=== PATIENT | female | born 2000 | race Caucasian/White ===

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

== ENCOUNTER 2021-01-25 17:27 | Emergency (ER) | payer MEDICAID ==
[~2021-01-25] VITALS: Ht 149.8 cm; Wt 49.9 kg
[~2021-01-25 17:27] MED LIST changes: -DCS100C PO; +DOCU-239 PO
[2021-01-25 17:41] VITALS: BP 129/79
[2021-01-25 17:45] LABS: CLARITY,URINE CLEAR; COLOR,URINE YELLOW
[2021-01-25 17:46] LABS: BACTERIA,URINE TRACE /HPF; BILIRUBIN,URINE NEGATIVE (NEGATIVE); GLUCOSE, URINE (UA) NEGATIVE (NEGATIVE); KETONES,URINE NEGATIVE (NEGATIVE); LEUKOCYTE ESTERASE ,URINE TRACE (NEGATIVE); NITRITE,URINE NEGATIVE (NEGATIVE); PROTEIN,URINE NEGATIVE (NEGATIVE); URINE OTHER SPERM PRESENT /HPF; WBC,URINE 0-2 /HPF
--- NOTE | 2021-01-25 18:09 | ED GU-Female ---
General Chief Complaint: OB > 20 WEEKS Stated Complaint: POSS CONTRACTIONS 24 WKS PREG Nursing Triage Note: Patient reports she is 24 weeks , MAYTE 05/15/21. She states she is having lower abdominal pressure and vaginal pressure. She states she had premature labor with her previous and is concerned she may be going into labor now. She states she sees Dr. Camacho and plans to deliver in [place]. Source: patient, old records History of Present Illness Date Seen by Provider: Jan 25, 2021 Time Seen by Provider: 17:30 Initial Comments 20-year-old G2, P1 patient that is 24 weeks and 2 days by her last menstrual period. She presents with cramping pain and pressure in her pelvis since yesterday. She stated that this started before having sex but has been worse since having sex. She denies any pain or burning with urination. She has had no vaginal bleeding, discharge, gush of fluid. She has pressure and sensation of contractions and needing to push similar to when she had gone into labor at 36 weeks in May. She states that she is scheduled to fly to [place] in the morning to go and be evaluated in regards to history of some cancer that she had when she was born. She wanted to be evaluated and checked before any travel to make sure she was not going into labor. She denies having headache, blurred vision, chest pain, nausea or vomiting. She has had no fever or chills. Timing/Duration: yesterday Severity/Quality: cramping (And pressure) Location: suprapubic, vaginal Radiation: suprapubic, vaginal Prior Genitourinary Problems: similar symptoms (With labor in May) Sexual Leoma History: less than 2 months ago, single partner Associated Symptoms: No diaphoresis, No dysuria, No fever/chills, No loss of bladder control, No lower back pain, No lumps, No mass, No nausea/vomiting, No nocturia, No polyuria, No swelling, No syncope, No urinary frequency Allergies and Home Medications Allergies Coded Allergies: No Known Drug Allergies (Unverified , 10/11/19) Patient Home Medication List Home Medication List Reviewed: Yes Docusate Sodium (Dok) 100 Mg Capsule, 100 MG PO BID PRN for CONSTIPATION-1ST LINE Prescribed by: GONZALO DONALD on 06/10/20 0818 Ferrous Sulfate (Iron) 325 Mg Tablet, 325 MG PO DAILY, (Reported) Entered as Reported by: JUANA FOSTER on 06/08/20 06 Ibuprofen (Ibuprofen) 600 Mg Tablet, 600 MG PO Q6H PRN for PAIN-MILD Prescribed by: GONZALO DONALD on 06/10/20 0818 Vit No.124/Iron/FA ( Vitamin Tablet) 1 Each Tablet, 1 EACH PO DAILY, (Reported) Entered as Reported by: JUANA FOSTER on 06/08/20631 Review of Systems Review of Systems Constitutional: No chills, No fever EENTM: no symptoms reported Respiratory: no symptoms reported Cardiovascular: no symptoms reported Gastrointestinal: no symptoms reported Genitourinary: see HPI : Yes Expected Date of Delivery: May 15, 2021 Musculoskeletal: no symptoms reported Skin: no symptoms reported Psychiatric/Neurological: Anxiety Past Zzsriam-Xnpeqe-Uiozbu Hx Patient Social History Tobacco Use?: No Substance use?: No Alcohol Use?: No Pt feels they are or have been: No Seasonal Allergies Seasonal Allergies: No Past Medical History Surgeries: Yes (Cancer in muscle of back removed?) Respiratory: No Cardiac: No Neurological: No Expected Date of Delivery: May 15, 2021 Sexually Transmitted Disease: Yes Genitourinary: No Gastrointestinal: No Musculoskeletal: No Endocrine: No HEENT: No Cancer: No Psychosocial: No Integumentary: No Blood Disorders: No Adverse Reaction/Blood Tranf: No Physical Exam Vital Signs Vital Signs - First Documented 01/25/21 17:41 Temp 36.9 Pulse 89 Resp 16 B/P (MAP) 129/79 (96) Pulse Ox 100 O2 Delivery Room Air Capillary Refill : Less Than 3 Seconds Height, Weight, BMI Height: '" Weight: lbs. oz. kg; 22.00 BMI Method: General Appearance: WD/WN, no apparent distress Cardiovascular: normal peripheral pulses, regular rate, rhythm Respiratory: chest non-tender, lungs clear, normal breath sounds Gastrointestinal: normal bowel sounds, soft, no pulsatile mass, other (Gravid uterus with heart tones in the 140s to 150s.) Genital/Rectal: normal vaginal exam (On vaginal exam the cervix felt to be closed and no bleeding or discharge noted.) Neurologic/Psychiatric: alert, oriented x 3 Skin: normal color, warm/dry Progress/Results/Core Measures Suspected Sepsis SIRS Temperature: Pulse: 89 Respiratory Rate: 16 Blood Pressure 129 /79 Mean: 96 Results/Orders Lab Results Laboratory Tests Test 01/25/21 17:33 Range/Units Urine Color YELLOW Urine Clarity CLEAR Urine pH 6.0 5-9 Urine Specific [place] 1.025 H 1.016-1.022 Urine Protein NEGATIVE NEGATIVE Urine Glucose (UA) NEGATIVE NEGATIVE Urine Ketones NEGATIVE NEGATIVE Urine Nitrite NEGATIVE NEGATIVE Urine Bilirubin NEGATIVE NEGATIVE Urine Urobilinogen 0.2 < = 1.0 MG/DL Urine Leukocyte Esterase TRACE H NEGATIVE Urine RBC (Auto) NEGATIVE NEGATIVE Urine RBC NONE /HPF Urine WBC 0-2 /HPF Urine Squamous Epithelial Cells 2-5 /HPF Urine Crystals NONE /LPF Urine Bacteria TRACE /HPF Urine Casts NONE /LPF Urine Mucus MODERATE H /LPF Urine Other SPERM PRESENT /HPF Urine Culture Indicated YES My Orders Orders - SARATH MIX MD Ua Culture If Indicated (01/25/21 17:40) Heart Tones (01/25/21 17:43) Urine Culture (01/25/21 17:33) Vital Signs/I&O 01/25/21 17:41 Temp 36.9 Pulse 89 Resp 16 B/P (MAP) 129/79 (96) Pulse Ox 100 O2 Delivery Room Air Capillary Refill : Less Than 3 Seconds Blood Pressure Mean: 96 Progress Note : Progress Note Urinalysis showed elevated specific gravity of 1.025 as well as trace leukocyte esterase. A culture was reflexed. Discussed with Dr. Andre who is on-call for Dr. Camacho with OB. She recommended having the patient get IV fluids, vaginal exam and to check with labor and delivery in [place]. When reviewing this with the patient she stated that she did not want to have IV fluids or get transferred by ambulance but she would go down to [place] by private vehicle and go to labor and delivery. She would be willing to get IV fluids there and she was encouraged to drink more fluids in route to the hospital Departure Impression Primary Impression: Feeling pelvic pressure during in second trimester, antepartum Additional Impression: Dehydration during Disposition: 30 STILL A PATIENT Condition: Stable Departure-Patient Inst. Decision time for Depature: 18:07 Referrals: FRITZ CAMACHO MD (PCP/Family) Primary Care Physician Patient Instructions: Dehydration, Adult ED, Stomach Pain Later in Add. Discharge Instructions: Stay well hydrated and drink water while you are on your way to [place] [address] [place] Go straight to the [facility] in [place] and go to the Emergency Department and tell them you need to be checked in to the Labor and Delivery area so that they can check for contractions and premature labor, per Dr. Villegas. All discharge instructions reviewed with patient and/or family. Voiced understanding. SARATH MIX MD Jan 25, 2021 18:09
== END 2021-01-25 18:15 | disposition still patient (30) ==
LOC: EDUNIT# 17:27 → ER FS 17:31
DX: O26.892 Other specified pregnancy related conditions, second trimester (principal); E86.0 Dehydration; Z3A.24 24 weeks gestation of pregnancy
CPT/HCPCS: 81000; 87088

== ENCOUNTER 2021-01-25 20:59 | Outpatient (CLI) | payer MEDICAID ==
[~2021-01-25] VITALS: Ht 149.9 cm; Wt 51.8 kg
[2021-01-25 21:18] VITALS: BP 120/64
[2021-01-25 21:22] VITALS: BP 120/64
[2021-01-25] MEDS ORDERED: LACTATED RINGERS 1,000 ML IV ONE (22:15)
--- NOTE | 2021-01-27 08:15 | Physician Query-Final Dx ---
Clinic Account Progress/Dx Physician Query: Please give diagnosis Please include # weeks gestation Date of Service Jan 25, 2021 at 20:59 GLENYS GONZALES Jan 27, 2021 08:15
== END 2021-01-25 22:43 | disposition home or self-care (01) ==
LOC: WSo 20:59 → LDRP 21:00 → WSo 22:43
PROVIDERS: ATTEND Family Medicine
DX: O62.9 Abnormality of forces of labor, unspecified (principal); Z3A.24 24 weeks gestation of pregnancy

== ENCOUNTER 2021-02-14 14:10 | Outpatient (CLI) | payer MEDICAID ==
[2021-02-14 13:40] VITALS: BP 109/72
[2021-02-14] MEDS ORDERED: IRON SUCROSE 200 MG/10 ML (VENOFER) VIAL IV ONE (14:45)
== END 2021-02-14 15:10 | disposition home or self-care (01) ==
LOC: SDC 14:10
PROVIDERS: ATTEND Family Medicine
DX: O99.019 Anemia complicating pregnancy, unspecified trimester (principal); Z3A.00 Weeks of gestation of pregnancy not specified

== ENCOUNTER 2021-02-21 13:33 | Outpatient (CLI) | payer MEDICAID ==
[~2021-02-21] VITALS: Ht 149.8 cm; Wt 53.0 kg
[2021-02-21 14:30] LABS: BILIRUBIN,URINE NEGATIVE (NEGATIVE); CLARITY,URINE CLEAR; COLOR,URINE YELLOW; GLUCOSE, URINE (UA) NEGATIVE (NEGATIVE); KETONES,URINE NEGATIVE (NEGATIVE); LEUKOCYTE ESTERASE ,URINE NEGATIVE (NEGATIVE); NITRITE,URINE NEGATIVE (NEGATIVE); PH,URINE 6.5 (5-9); PROTEIN,URINE NEGATIVE (NEGATIVE)
[2021-02-21 14:43] LABS: BACTERIA,URINE TRACE /HPF; SQUAMOUS EPITHELIAL CELL,UR 0-2 /HPF; WBC,URINE 0-2 /HPF
[2021-02-21 15:50] VITALS: BP 131/59
[2021-02-21 16:05] VITALS: BP 131/59
--- NOTE | 2021-02-24 08:16 | Physician Query-Final Dx ---
Clinic Account Progress/Dx Physician Query: Please give diagnosis Please include # weeks gestation Date of Service Feb 21, 2021 at 13:33 JANET,AprFeb 24, 2021 08:16
== END 2021-02-21 16:25 | disposition home or self-care (01) ==
LOC: WSo 13:33 → LDRP 13:33 → WSo 16:25
PROVIDERS: ATTEND Family Medicine
DX: O26.892 Other specified pregnancy related conditions, second trimester (principal); Z3A.00 Weeks of gestation of pregnancy not specified
CPT/HCPCS: 81000; 87088

== ENCOUNTER 2021-02-28 13:02 | Outpatient (CLI) | payer MEDICAID ==
[~2021-02-28] VITALS: Ht 149.9 cm; Wt 57.2 kg
[2021-02-28 13:05] VITALS: BP 105/61
[2021-02-28] MEDS ORDERED: IRON SUCROSE 200 MG/10 ML (VENOFER) VIAL IV ONE ×2 (13:49→14:00)
== END 2021-02-28 14:40 | disposition home or self-care (01) ==
LOC: SDC 13:02
PROVIDERS: ATTEND Family Medicine
DX: O99.013 Anemia complicating pregnancy, third trimester (principal); D64.9 Anemia, unspecified; Z3A.00 Weeks of gestation of pregnancy not specified
CPT/HCPCS: 96365

== ENCOUNTER 2021-03-24 20:57 | Outpatient (CLI) | payer MEDICAID ==
[~2021-03-24] VITALS: Ht 149.9 cm; Wt 55.4 kg
[2021-03-24 21:32] VITALS: BP 118/70
[2021-03-24 21:35] LABS: BILIRUBIN,URINE NEGATIVE (NEGATIVE); CLARITY,URINE CLEAR; COLOR,URINE YELLOW; GLUCOSE, URINE (UA) NEGATIVE (NEGATIVE); KETONES,URINE NEGATIVE (NEGATIVE); LEUKOCYTE ESTERASE ,URINE NEGATIVE (NEGATIVE); NITRITE,URINE NEGATIVE (NEGATIVE); PH,URINE 7.5 (5-9); PROTEIN,URINE NEGATIVE (NEGATIVE)
[2021-03-24 21:56] LABS: BACTERIA,URINE TRACE /HPF; WBC,URINE 0-2 /HPF
[2021-03-24 22:00] VITALS: BP 118/70
[2021-03-24] MEDS ORDERED: BETAMETHASONE ACE/NA PHOS 6 MG/ML (CELESTONE SOLUSPAN) IM SCH (22:15)
[2021-03-24] MEDS ORDERED: BETAMETHASONE ACE/NA PHOS 6 MG/ML (CELESTONE SOLUSPAN) ONE (22:19)
[2021-03-24] MEDS: LACTATED RINGERS 1,000 ML IV SCH (22:25)
[2021-03-25] MEDS: LACTATED RINGERS 1,000 ML IV SCH ×2 (04:43→18:30)
[2021-03-25 07:22] VITALS: BP 118/70
[2021-03-25] MEDS ORDERED: ACETAMINOPHEN 500 MG TAB (TYLENOL) PO PRN (08:30)
[2021-03-25 08:40] VITALS: BP 101/57
--- NOTE | 2021-03-25 08:46 | Diagnostic Imaging Report ---
INDICATION: Fluid loss during . TECHNIQUE: Multiple real-time grayscale images were obtained over the gravid uterus. COMPARISON: None FINDINGS: Cervix measures approximately 4.2 cm and closed. Fetus is in cephalic presentation. The placenta is normal in appearance. The amount of amniotic fluid is normal with an CHATO of 11.78 cm. anatomy survey was not performed due to advanced gestational age. Biometrical measurements are as follows: Biparietal 8.87 cm, age 36 weeks 0 days. Head circumference 31.14 cm, age 34 weeks 6 days. Abdominal circumference 30.52 cm, age 34 weeks 4 days. Femur length 6.46 cm, age 33 weeks 3 days. Sonographic estimate age: 34 weeks 5 days. Sonographic estimated date of delivery: 05/01/2021. Estimated Weight: 2405 gm (+/- 351 gm). LMP percentile: 87%. heart rate: 119 beats per minute. number: 1 of 1. IMPRESSION: 1. Single live intrauterine in cephalic presentation. 2. CHATO is normal at 11.78 cm. Dictated by: Dictated on workstation # [id number]
[2021-03-25 09:54] LABS: HEMATOCRIT 29 % (35-52); HEMOGLOBIN 9.2 g/dL (11.5-16.0); MEAN CORPUSCULAR HEMOGLOBIN 27 pg (25-34); MEAN CORPUSCULAR HGB CONC 31 g/dL (32-36); MEAN CORPUSCULAR VOLUME 86 fL (80-99); MEAN PLATELET VOLUME 11.2 fL (9.0-12.2); PLATELET COUNT 219 10^3/uL (130-400); WHITE BLOOD COUNT 6.8 10^3/uL (4.3-11.0)
[2021-03-25] MEDS ORDERED: IRON SUCROSE 200 MG/10 ML (VENOFER) VIAL IV ONE (10:45)
--- NOTE | 2021-03-25 11:36 | Diagnostic Imaging Report ---
INDICATION: Intermittent bradycardia. FINDINGS: Examination shows a normal biophysical profile with 2 given for breathing movement, movement, posture and tone and quantitative amniotic fluid volume for score of 8/8. heart rate was seen at 111 BPM. Presentation was cephalic. IMPRESSION: Normal biophysical profile with score of 8/8. Dictated by: Dictated on workstation # [id number]
--- NOTE | 2021-03-25 13:23 | Diagnostic Imaging Report ---
INDICATION: Followup renal dilatation. TECHNIQUE: Multiple Real-time grayscale images were obtained over the gravid uterus. COMPARISON: None. FINDINGS: Both kidneys do show some dilatation of the renal collecting systems. The right renal pelvis is dilated up to 7 mm. The left renal pelvis is dilated up to 8 mm. The bladder is unremarkable. IMPRESSION: Bilateral renal pelvic dilatation. Dictated by: Dictated on workstation # [id number]
[2021-03-25 15:27] VITALS: BP 100/59
--- NOTE | 2021-03-25 16:56 | Short Stay Summary ---
History of Present Illness History of Present Illness Reason for visit/HPI at 32w4d presented to Labor and Delivery on 03/24 in the evening due to contractions, possible mucous plug loss. She was found to have very rare contractions, but given her history of delivery, she was given betamethasone around 10 pm on 03/24 and ultrasound was obtained in the am 03/25 which showed cervical length of 4.2 cm. However, during the night she had periods of low heart tone baseline, and occasional variable decelerations. Due to this, BPP was done in the morning on 03/25 which was 8/8. She also was noted to have had mild renal pelviectasis on anatomy US and so this was rechecked and confirmed persistent mild bilateral renal pelvis enlargement of 7 mm and 8 mm for right and left respectively. CHATO normal at 11. She did also receive a dose of venofer, which she had been planning to get outpatient but had not received a call about per her and mother's report. CBC unremarkable except for hemoglobin 9.2. UA was normal. She continued to have some back pain, and periods of intermittent luke, and throughout the day continued to have occasional concerning decelerations, the most significant of which was around 3 pm and had deceleration to 60s for 3 minutes, after which baseline FHTs were 120s with moderate variability and accels present since that time. Given her history of labor and intermittent contractions in combination with non- reassuring heart tones, discussed with Dr. Hough at [facility] who accepted patient in transfer. Intake labs from clinic show blood type A neg, antibody neg, RI. HIV/HepB/RPR NR. GC/chlamydia neg. 1 hour glucola 109. Per early notes, she has history of substance use, intake urine was positive for THC only. Date of Admission 03/24/2021 Date of Discharge 03/25/2021 Time Seen by Provider: 09:00 Attending Physician Gonzalo Donald MD Admitting Physician Fritz Camacho MD Consult Allergies and Home Medications Allergies Coded Allergies: No Known Drug Allergies (Unverified , 10/11/19) Patient Home Medication List Home Medication List Reviewed: Yes Ferrous Sulfate (Ferosul) 325 Mg Tablet, 325 MG PO BID, (Reported) Entered as Reported by: GONZALO DONALD on 03/25/21 1701 Last Action: Reviewed Vit No.124/Iron/FA ( Vitamin Tablet) 1 Each Tablet, 1 EACH PO DAILY, (Reported) Entered as Reported by: JUANA FOSTER on 06/08/20 0632 Last Action: Reviewed Past Ctlkggx-Hpqjtw-Tbvxne Hx Patient Social History 2nd Hand Smoke Exposure: No Recent Hopitalizations: No Seasonal Allergies Seasonal Allergies: No Surgeries Yes (Cancer in muscle of back removed?) Respiratory No Cardiovascular No Neurological No Reproductive System Expected Date of Delivery: May 15, 2020 Hx : 2 Hx Para: 1 Hx Total # of Abortions (Spona: 0 Sexually Transmitted Disease: Yes Genitourinary No Gastrointestinal No Musculoskeletal No Endocrine History of Endocrine Disorders: No HEENT History of HEENT Disorders: No Cancer No Psychosocial History of Psychiatric Problem: No Integumentary History of Skin or Integumenta: No Blood Transfusions History of Blood Disorders: No Adverse Reaction to a Blood Tr: No Review of Systems Constitutional: other (see HPI) Physical Exam Vital Signs Vital Signs - First Documented 03/24/21 03/24/21 21:32 22:00 Temp 37.0 Pulse 93 Resp 18 B/P (MAP) 118/70 (86) Pulse Ox 98 O2 Delivery Room Air Capillary Refill : Less Than 3 Seconds Height, Weight, BMI Height: '" Weight: lbs. oz. kg; 24.65 BMI Method: General Appearance: No Apparent Distress, WD/WN Cardiovascular: No Edema Gastrointestinal: Other (gravid, nontender) Neurologic/Psychiatric: Alert, Normal Mood/Affect Skin: Normal Color, Warm/Dry Short Stay Diagnosis Discharge Diagnosis-Short Stay Admission Diagnosis: Third trimester 32 weeks gestation History of delivery at 35 weeks contractions with reassuring cervical length Final Discharge Diagnosis: Third trimester 32 weeks gestation contractions Nonreassuring heart tones Conclusion Labs Laboratory Tests 03/24/21 21:15: Urine Color YELLOW, Urine Clarity CLEAR, Urine pH 7.5, Urine Specific [place] 1.015L, Urine Protein NEGATIVE, Urine Glucose (UA) NEGATIVE, Urine Ketones NEGATIVE, Urine Nitrite NEGATIVE, Urine Bilirubin NEGATIVE, Urine Urobilinogen 0.2, Urine Leukocyte Esterase NEGATIVE, Urine RBC (Auto) NEGATIVE, Urine RBC NONE, Urine WBC 0-2, Urine Squamous Epithelial Cells 2-5, Urine Crystals NONE, Urine Bacteria TRACE, Urine Casts NONE, Urine Mucus NEGATIVE, Urine Culture Indicated NO 03/25/21 09:44: White Blood Count 6.8, Red Blood Count 3.41L, Hemoglobin 9.2L, Hematocrit 29L, Mean Corpuscular Volume 86, Mean Corpuscular Hemoglobin 27, Mean Corpuscular Hemoglobin Concent 31L, Red Cell Distribution Width 15.9H, Platelet Count 219, Mean Platelet Volume 11.2 Conclusion/Plan Transferred to [facility] for further monitoring/availability of NICU. Copy Copies To 1: FRITZ CAMACHO MD, BETHANY N MD Mar 25, 2021 16:56
[2021-03-25] MEDS ORDERED: FERR325T24 PO (17:01)
[2021-03-25 17:41] LABS: AMPHETAMINE SCREEN, URINE NEGATIVE (NEGATIVE); BARBITURATE SCREEN URINE NEGATIVE (NEGATIVE); BENZODIAZEPINES SCREEN URINE NEGATIVE (NEGATIVE); CANNABINOID SCREEN, URINE NEGATIVE (NEGATIVE); COCAINE SCREEN URINE NEGATIVE (NEGATIVE); METHADONE STAT NEGATIVE (NEGATIVE); METHAMPHETAMINE SCREEN URINE S NEGATIVE (NEGATIVE); OPIATE SCREEN URINE NEGATIVE (NEGATIVE); OXYCODONE STAT NEGATIVE (NEGATIVE); PROPOXYPHENE STAT NEGATIVE (NEGATIVE); TRICYCLIC ANTIDEPRESSANTS SCRE NEGATIVE (NEGATIVE)
== END 2021-03-25 18:30 | disposition other institution (70) ==
LOC: WSo 20:57 → LDRP 20:57 → WSo 03-25 18:30
PROVIDERS: ATTEND Family Medicine
DX: O41.93X0 Disorder of amniotic fluid and membranes, unspecified, third trimester, not applicable or unspecified (principal); Z3A.34 34 weeks gestation of pregnancy
CPT/HCPCS: 36415; 76805; 76816; 76819; 80306; 81000; 85027; G0378

== ENCOUNTER 2021-03-29 00:54 | Outpatient (CLI) | payer MEDICAID ==
[~2021-03-29 00:54] MED LIST changes: +FERR325T24 PO
[2021-03-29 01:36] LABS: BILIRUBIN,URINE NEGATIVE (NEGATIVE); CLARITY,URINE CLEAR; COLOR,URINE YELLOW; GLUCOSE, URINE (UA) NEGATIVE (NEGATIVE); KETONES,URINE NEGATIVE (NEGATIVE); LEUKOCYTE ESTERASE ,URINE TRACE (NEGATIVE); NITRITE,URINE NEGATIVE (NEGATIVE); PROTEIN,URINE NEGATIVE (NEGATIVE)
[2021-03-29 01:45] LABS: BACTERIA,URINE TRACE /HPF; RBC,URINE 0-2 /HPF
[2021-03-29 01:46] LABS: SQUAMOUS EPITHELIAL CELL,UR 0-2 /HPF
[2021-03-29 01:57] VITALS: BP 106/60
[2021-03-29 02:17] VITALS: BP 106/60
[2021-03-29 06:20] VITALS: BP 91/52
[2021-03-29 09:00] VITALS: BP 97/53
--- NOTE | 2021-03-29 10:48 | Short Stay Summary ---
Discharge Summary Hospital Course Final Diagnosis: COVID19, no respiratory distress, 3rd trim preg Hospital Course Date of Admission: Admission Diagnosis : COVID19 infection Shortness of breath Family Physician/Provider: Fritz Cruz MD Date of Discharge: 03/29/21 Discharge Diagnosis: COVID19, no respiratory distress or hypoxia 33 weeks gestation Hospital Course: 20 yo at 33w1d presented to ER after telling nurse via telephone that she was having chest pressure and shortness of breath with known COVID19 positive test. She was seen on L&D on Wednesday, 03/24-03/25 for cramping and possible mucous plug loss, at that time no covid symptoms were noted. She was monitored overnight and did have some fairly severe decelerations, althought she had a normal (11/17 BPP on 03/25 am), she was transferred to [place], where she reports she was monitored and then was going to be discharged, but she didn't have a ride, and then had recurrent decels again overnight, but since she had a ride, she left AMA in the morning. They apparently tested her for COVID at [facility] due to report of SO being positive. When outpatient clinic nurse called her to set up a follow up BPP this coming Wednesday and monoclonal antibody infusion, she reported the above symptoms and was directed to the ER. She was found to have no hypoxia or respiratory distress, and was sent to L&D for further monitoring. Overnight, status has been reassuring and so this morning, I called pharmacy to ensure she had monoclonal antibody infusion set up, but they did not have her paperwork, so I re-ordered and [facility] registration is to call patient on Wednesday to schedule her. I told Ori if she was not called first thing Wednesday to be sure and call to let us know. Labs and Pending Lab Test: Laboratory Tests 03/29/21 01:15: Urine Color YELLOW, Urine Clarity CLEAR, Urine pH 6.0, Urine Specific [place] >=1.030, Urine Protein NEGATIVE, Urine Glucose (UA) NEGATIVE, Urine Ketones NEGATIVE, Urine Nitrite NEGATIVE, Urine Bilirubin NEGATIVE, Urine Urobilinogen 0.2, Urine Leukocyte Esterase TRACEH, Urine RBC (Auto) NEGATIVE, Urine RBC 0-2, Urine WBC 5-10H, Urine Squamous Epithelial Cells 0-2, Urine Crystals NONE, Urine Bacteria TRACE, Urine Casts NONE, Urine Mucus NEGATIVE, Urine Culture Indicated YES Home Meds Active Reported Ferosul (Ferrous Sulfate) 325 Mg Tablet 325 Mg PO BID Vitamin Tablet ( Vit No.124/Iron/FA) 1 Each Tablet 1 Each PO DAILY Assessment/Pt Instructions Follow up as scheduled for Biophysical profile at [facility] on Wednesday. Call the clinic and hospital if you do not receive a call to schedule COVID monoclonal antibody infusion on Wednesday. Discharge Instructions Discharge Diet: No Restrictions Activity as Tolerated: Yes Discharge Physical Examination General Appearance: Alert, No Acute Distress Respiratory: Clear to Auscultation, Normal Air Movement Cardiovascular: Regular Rate, No Murmurs Extremities: No Edema Neuro: Normal Speech Psych/Mental Status: Mood NL Allergies: Coded Allergies: No Known Drug Allergies (Unverified , 10/11/19) Copy Copies To 1: FRITZ CRUZ MD Discharge Summary Date of Admission Date of Discharge Discharge Date: Mar 29, 2021 GONZALO DONALD MD Mar 29, 2021 10:48
== END 2021-03-29 11:10 | disposition home or self-care (01) ==
LOC: WSo 00:54 → LDRP 00:55 → WSo 11:10
PROVIDERS: ATTEND Family Medicine
DX: O26.853 Spotting complicating pregnancy, third trimester (principal); O26.893 Other specified pregnancy related conditions, third trimester; R10.9 Unspecified abdominal pain; Z3A.34 34 weeks gestation of pregnancy
CPT/HCPCS: 81000; 87088

== ENCOUNTER 2021-04-10 08:38 | Outpatient (CLI) | payer MEDICAID ==
[2021-04-10 08:45] VITALS: BP 108/74
[2021-04-10 09:00] VITALS: BP 108/74
[2021-04-10 09:10] LABS: BILIRUBIN,URINE NEGATIVE (NEGATIVE); CLARITY,URINE SL CLOUDY; COLOR,URINE YELLOW; GLUCOSE, URINE (UA) NEGATIVE (NEGATIVE); KETONES,URINE NEGATIVE (NEGATIVE); LEUKOCYTE ESTERASE ,URINE NEGATIVE (NEGATIVE); NITRITE,URINE NEGATIVE (NEGATIVE); PROTEIN,URINE NEGATIVE (NEGATIVE)
[2021-04-10 09:31] LABS: BACTERIA,URINE FEW /HPF; WBC,URINE 0-2 /HPF
[2021-04-10] MEDS ORDERED: ONDANSETRON 4 MG (ZOFRAN) ORAL DISSOLVE TAB PO ONE (10:00)
--- NOTE | 2021-04-11 08:32 | Physician Query-Final Dx ---
JANET,04/11/21 0832: Clinic Account Progress/Dx Physician Query: Please give diagnosis Please include # weeks gestation Date of Service Apr 10, 2021 at 08:38 CARLIN CHRISTIANSON MD 04/12/21 0813: Clinic Account Progress/Dx DIAGNOSIS: Diagnosis 1. IUP at term 39 weeks, non labor 2. Abdominal pain with uterine irritability JANET,AprApr 11, 2021 08:32 CARLIN CHRISTIANSON MD Apr 12, 2021 08:13
== END 2021-04-10 11:35 | disposition home or self-care (01) ==
LOC: WSo 08:38 → LDRP 08:39 → WSo 11:35
PROVIDERS: ATTEND Family Medicine
DX: O26.893 Other specified pregnancy related conditions, third trimester (principal); R10.9 Unspecified abdominal pain; Z3A.39 39 weeks gestation of pregnancy
CPT/HCPCS: 81000; 87088; 99213

== ENCOUNTER 2021-04-10 18:11 | Inpatient (IN) | payer MEDICAID ==
[~2021-04-10] VITALS: Ht 149.9 cm; Wt 55.7 kg
[2021-04-10] VITALS (12 sets, daily range): BP systolic 107–136; BP diastolic 67–94
[2021-04-10] MEDS ORDERED: D5 LR IV SOLUTION 1,000 ML IV SCH (19:00)
[2021-04-10] MEDS ORDERED: D5 LR IV SOLUTION 1,000 ML IV ONE (19:03)
[2021-04-10] MEDS ORDERED: AMPICILLIN 2,000 MG/14.8 ML (IV USE) ONE (19:11)
[2021-04-10] MEDS ORDERED: NS (IVPB) 50 ML ONE (19:12)
[2021-04-10] MEDS ORDERED: NALOXONE 0.4 MG/ML 1 ML (NARCAN) VIAL ONE (19:23)
[2021-04-10] MEDS ORDERED: MEPIVACAINE (CARBOCAINE) 2% 50 ML VIAL ONE (19:24)
[2021-04-10] MEDS ORDERED: OXYTOCIN PRE-MIX DRIP 500 ML IV ONE ×2 (19:27→20:52)
[2021-04-10] MEDS ORDERED: AMPICILLIN FOR IV USE 2,000 MG in WATER (STERILE) FOR INJECTION 14.8 ML IV ONE (19:30)
[2021-04-10] MEDS ORDERED: NS IV 500 ML 500 ML IV SCH (19:30)
[2021-04-10 19:36] LABS: BASOPHILS % (AUTO) 0 % (0-10); EOSINOPHILS % (AUTO) 0 % (0-10); HEMATOCRIT 35 % (35-52); HEMOGLOBIN 11.1 g/dL (11.5-16.0); LYMPHOCYTES # (AUTO) 0.9 10^3/uL (1.0-4.0); LYMPHOCYTES % (AUTO) 13 % (12-44); MEAN CORPUSCULAR HEMOGLOBIN 27 pg (25-34); MEAN CORPUSCULAR HGB CONC 32 g/dL (32-36); MEAN CORPUSCULAR VOLUME 86 fL (80-99); MONOCYTES # (AUTO) 0.5 10^3/uL (0.0-1.0); MONOCYTES % (AUTO) 7 % (0-12); NEUTROPHILS # (AUTO) 5.5 10^3/uL (1.8-7.8); NEUTROPHILS % (AUTO) 79 % (42-75); PLATELET COUNT 165 10^3/uL (130-400); WHITE BLOOD COUNT 6.9 10^3/uL (4.3-11.0)
--- NOTE | 2021-04-10 20:01 | History & Physical-OB ---
OB - Chief Complaint & HPI Date/Time Date of Admission: Date of Admission: Date seen by a Provider: Apr 10, 2021 Time Seen by a Provider: 19:00 Chief Complaint/History OB-Reason for Admission/Chief: Onset of Labor Hx : 2 Hx Para: 1 Expected Date of Delivery: May 15, 2021 Gestational Age in Weeks: 35 Gestational Age in Days: 0 Admission Nurse Assessment Rev: Yes History of Labs No GBS as of admission. She will be given Amp protochol ANA. Allergies and Home Medications Allergies Coded Allergies: No Known Drug Allergies (Unverified , 10/11/19) Patient Home Medication List Home Medication List Reviewed: Yes Ferrous Sulfate (Ferosul) 325 Mg Tablet, 325 MG PO BID, (Reported) Entered as Reported by: GONZALO DONALD on 03/25/21 1701 Vit No.124/Iron/FA ( Vitamin Tablet) 1 Each Tablet, 1 EACH PO DAILY, (Reported) Entered as Reported by: JUANA FOSTER on 06/08/20 0632 OB - History Hx of Present Care: Yes Ultrasounds: Normal mid trimester US Obstetrical Complications: Other ( labor) Medical Complications: None Obstetrical History Hx Multiple Gestation: No Hx Stillbirth: No Hx Complication: No Hx Induced Hypertens: No Hx Maternal Gestational Diabet: No Delivery History Hx Dystocia: No Hx Large For Gestational Age I: No Hx Small for Gestational Age I: No Hx Section: No Hx Vaginal Delivery Post C-Sec: No Hx Blood Disorders: No Adverse Rxn to Tranfusion: No Patient Past Medical History PMHx: Denies SurgHx: Removal of rhabdomyosarcoma as an from [facility] Social History/Family History 2nd Hand Smoke Exposure: No OB - Admission Exam Physical Exam HEENT: Moist Membranes Heart: Rhythm Normal Lungs: Clear Abdomen: Gravid Cervical Dilatation: 5cm (on admit) Effacement: 100% Station: +1 Membranes: Intact Heart Rate: 130's Accelerations: Accelerations Present Short Term Variability: Present Hip Hop Dancer Variability: Average (6-25) Intensity: Moderate Labs Laboratory Tests Test 04/10/21 18:21 04/10/21 19:25 Range/Units White Blood Count 6.9 4.3-11.0 10^3/uL Red Blood Count 4.05 3.80-5.11 10^6/uL Hemoglobin 11.1 L 11.5-16.0 g/dL Hematocrit 35 35-52 % Mean Corpuscular Volume 86 80-99 fL Mean Corpuscular Hemoglobin 27 25-34 pg Mean Corpuscular Hemoglobin Concent 32 32-36 g/dL Red Cell Distribution Width 17.3 H 10.0-14.5 % Platelet Count 165 130-400 10^3/uL Mean Platelet Volume 11.0 9.0-12.2 fL Immature Granulocyte % (Auto) 1 % Neutrophils (%) (Auto) 79 H 42-75 % Lymphocytes (%) (Auto) 13 12-44 % Monocytes (%) (Auto) 7 0-12 % Eosinophils (%) (Auto) 0 0-10 % Basophils (%) (Auto) 0 0-10 % Neutrophils # (Auto) 5.5 1.8-7.8 10^3/uL Lymphocytes # (Auto) 0.9 L 1.0-4.0 10^3/uL Monocytes # (Auto) 0.5 0.0-1.0 10^3/uL Eosinophils # (Auto) 0.0 0.0-0.3 10^3/uL Basophils # (Auto) 0.0 0.0-0.1 10^3/uL Immature Granulocyte # (Auto) 0.1 0.0-0.1 10^3/uL OB - Assessment/Plan/Diagnosis Assessment Assessment: active labor (at 35 weeks gestation) Admission Dx 1. IUP at 35 weeks, in labor Admission Status: Inpatient Order (span 2 midnights) Reason for Inpatient Admission: Delivery eminent Plan Plan: Other (delivery) Other Plan -peds notified. -CARLIN Talamantes MD Apr 10, 2021 20:01
--- NOTE | 2021-04-10 20:04 | OB Labor & Delivery Record ---
L&D History Date of Service Date of Service: Apr 10, 2021 History Expected Date of Delivery: May 15, 2021 Gestational Age in Weeks: 35 Hx : 2 Hx Para: 2 Complications Events: Labor <37 wks Operative Indications (Cesarea: N/A-Vaginal Delivery Intrapartal Events: None Other Complications ampicillin given due to unknown GBS status L&D Stage1 Stage One Onset of Labor - Date: Apr 10, 2021 Onset of Labor - Time: 15:00 Monitors and Tracing Monitor Mode: External Monitor Accelerations: Uniform Monitor Decelerations: None Station: -1 Skilled Nursing Variability: Average (6-10) Short Term Variability: Present Presentation: Vertex Signs of Distress by FHT Signs of Distress no Rupture of Membranes Spontaneous Ruture of Membrane: No Amniotic Membrane Fluid Desc.: Clear Vaginal Bleeding Description: None L&D Stage2 Stage Two Stage II Date: Apr 10, 2021 Stage II Time: 19:45 Monitors and Tracing Monitor Mode: External Monitor Accelerations: Uniform Monitor Decelerations: None Skilled Nursing Variability: Average (6-10) Short Term Variability: Present Position: Left Occiput Anterior Presentation: Vertex Signs of Distress by FHT Signs of Distress no Cord Descript/Complications Cord Vessel Description: 3 Vessels Delivery Type Delivery Method: Spontaneous Vaginal Anterior Shoulder: Left Episiotomy/Perineal Laceration Laceraction(s)/Extensions: No Condition of Infant Delivery 1 minute Comment: 8 5 minute Comment: 9 Condition of Condition of Infant: Living Exam: No Observed Abnormalities Resuscitation Resuscitation: N/A - Spontaneous Resp L&D Stage3 Stage Three Stage III Date: Apr 10, 2021 Stage III Time: 19:50 Pictocin Pitocin ml/hr: 125 Placenta Delivery Placenta Delivery: Spontaneous Delivery Summary Summary Estimated blood loss (mL): 200 Condition of Delivery Examined: Cervix Examined Post Hemorrhage: No Intervention Required none CARLIN CHRISTIANSON MD Apr 10, 2021 20:04
[2021-04-10] MEDS ORDERED: OXYTOCIN PRE-MIX DRIP 500 ML IV SCH (20:15)
[2021-04-10] MEDS ORDERED: WITCH HAZEL(TUCKS) 40 EA JAR TOP PRN (20:15)
[2021-04-10] MEDS ORDERED: TETANUS,DIPTH,PERTUSS P/F (BOOSTRIX) 0.5 ML VIAL IM ONE (20:15)
[2021-04-10] MEDS ORDERED: BENZOCAINE/MENTHOL (DERMOPLAST) 56 ML CAN TP PRN (20:15)
[2021-04-10] MEDS ORDERED: NALOXONE 0.4 MG/ML 1 ML (NARCAN) VIAL IV PRN (20:15)
[2021-04-10] MEDS ORDERED: IBUPROFEN 600 MG (MOTRIN) TAB PO ONE (20:51)
[2021-04-10] MEDS ORDERED: ACETAMINOPHEN 500 MG TAB (TYLENOL) ONE (20:52)
[2021-04-10] MEDS: ACETAMINOPHEN 500 MG TAB (TYLENOL) PO SCH (20:53)
[2021-04-10] MEDS: IBUPROFEN 600 MG (MOTRIN) TAB PO SCH (20:53)
[2021-04-10 20:56] LABS: AMPHETAMINE SCREEN, URINE NEGATIVE (NEGATIVE); BARBITURATE SCREEN URINE NEGATIVE (NEGATIVE); BENZODIAZEPINES SCREEN URINE NEGATIVE (NEGATIVE); CANNABINOID SCREEN, URINE NEGATIVE (NEGATIVE); COCAINE SCREEN URINE NEGATIVE (NEGATIVE); METHADONE STAT NEGATIVE (NEGATIVE); METHAMPHETAMINE SCREEN URINE S NEGATIVE (NEGATIVE); OPIATE SCREEN URINE NEGATIVE (NEGATIVE); OXYCODONE STAT NEGATIVE (NEGATIVE); PROPOXYPHENE STAT NEGATIVE (NEGATIVE); TRICYCLIC ANTIDEPRESSANTS SCRE NEGATIVE (NEGATIVE)
[2021-04-10] MEDS ORDERED: CATHETER FLUSH 10 ML SYR IV SCH ×2 (22:00)
[2021-04-11 02:25] VITALS: BP 97/58
[2021-04-11] MEDS: IBUPROFEN 600 MG (MOTRIN) TAB PO SCH ×4 (02:26→21:09)
[2021-04-11] MEDS: ACETAMINOPHEN 500 MG TAB (TYLENOL) PO SCH ×3 (02:26→18:16)
[2021-04-11 05:37] LABS: BASOPHILS % (AUTO) 0 % (0-10); EOSINOPHILS % (AUTO) 0 % (0-10); HEMATOCRIT 31 % (35-52); HEMOGLOBIN 9.7 g/dL (11.5-16.0); LYMPHOCYTES # (AUTO) 0.9 10^3/uL (1.0-4.0); LYMPHOCYTES % (AUTO) 16 % (12-44); MEAN CORPUSCULAR HEMOGLOBIN 27 pg (25-34); MEAN CORPUSCULAR HGB CONC 32 g/dL (32-36); MEAN CORPUSCULAR VOLUME 86 fL (80-99); MEAN PLATELET VOLUME 11.5 fL (9.0-12.2); MONOCYTES # (AUTO) 0.6 10^3/uL (0.0-1.0); MONOCYTES % (AUTO) 10 % (0-12); NEUTROPHILS # (AUTO) 4.3 10^3/uL (1.8-7.8); NEUTROPHILS % (AUTO) 74 % (42-75); PLATELET COUNT 168 10^3/uL (130-400); WHITE BLOOD COUNT 5.9 10^3/uL (4.3-11.0)
[2021-04-11 05:42] VITALS: BP 99/60
[2021-04-11 08:12] VITALS: BP 98/60
[2021-04-11] MEDS: DOCUSATE SODIUM 100 MG (COLACE) CAP PO SCH ×2 (08:44→21:09)
--- NOTE | 2021-04-11 09:36 | Progress Note ---
Subjective Subjective/Events-last exam Doing well. No significant vaginal bleeding. Cramping under control Objective Exam Last Set of Vital Signs Vital Signs Date Time Temp Pulse Resp B/P (MAP) Pulse Ox O2 Delivery O2 Flow Rate FiO2 04/11/21 08:12 36.4 74 16 98/60 (73) 98 Room Air Capillary Refill : Less Than 3 Seconds General: No Acute Distress Lungs: Clear to Auscultation Abdomen: Soft (with uterus firm) Results/Procedures Lab Laboratory Tests 04/10/21 18:21: Urine Opiates Screen NEGATIVE, Urine Oxycodone Screen NEGATIVE, Urine Methadone Screen NEGATIVE, Urine Propoxyphene Screen NEGATIVE, Urine Barbiturates Screen NEGATIVE, Ur Tricyclic Antidepressants Screen NEGATIVE, Urine Phencyclidine Screen NEGATIVE, Urine Amphetamines Screen NEGATIVE, Urine Methamphetamines Screen NEGATIVE, Urine Benzodiazepines Screen NEGATIVE, Urine Cocaine Screen NEGATIVE, Urine Cannabinoids Screen NEGATIVE 04/10/21 19:25: White Blood Count 6.9, Red Blood Count 4.05, Hemoglobin 11.1L, Hematocrit 35, Mean Corpuscular Volume 86, Mean Corpuscular Hemoglobin 27, Mean Corpuscular Hemoglobin Concent 32, Red Cell Distribution Width 17.3H, Platelet Count 165, Mean Platelet Volume 11.0, Immature Granulocyte % (Auto) 1, Neutrophils (%) (Auto) 79H, Lymphocytes (%) (Auto) 13, Monocytes (%) (Auto) 7, Eosinophils (%) (Auto) 0, Basophils (%) (Auto) 0, Neutrophils # (Auto) 5.5, Lymphocytes # (Auto) 0.9L, Monocytes # (Auto) 0.5, Eosinophils # (Auto) 0.0, Basophils # (Auto) 0.0, Immature Granulocyte # (Auto) 0.1 04/10/21 21:02: Glucometer 44*L 04/11/21 05:29: White Blood Count 5.9, Red Blood Count 3.57L, Hemoglobin 9.7L, Hematocrit 31L, Mean Corpuscular Volume 86, Mean Corpuscular Hemoglobin 27, Mean Corpuscular Hemoglobin Concent 32, Red Cell Distribution Width 17.1H, Platelet Count 168, Mean Platelet Volume 11.5, Immature Granulocyte % (Auto) 1, Neutrophils (%) (Auto) 74, Lymphocytes (%) (Auto) 16, Monocytes (%) (Auto) 10, Eosinophils (%) (Auto) 0, Basophils (%) (Auto) 0, Neutrophils # (Auto) 4.3, Lymphocytes # (Auto) 0.9L, Monocytes # (Auto) 0.6, Eosinophils # (Auto) 0.0, Basophils # (Auto) 0.0, Immature Granulocyte # (Auto) 0.0 Assessment/Plan Assessment/Plan Admission Status: Inpatient Order (span 2 midnights) Assessment & Plan 1. S/P at 35 weeks gestation -doing well -routine PP care orders. CARLIN CHRISTIANSON MD Apr 11, 2021 09:36
[2021-04-11 11:37] VITALS: BP 91/55
[2021-04-11 15:29] VITALS: BP 94/66
[2021-04-11 19:23] VITALS: BP 91/57
[2021-04-12 03:00] VITALS: BP 80/48
[2021-04-12] MEDS: IBUPROFEN 600 MG (MOTRIN) TAB PO SCH ×2 (03:25→09:14)
[2021-04-12 09:12] VITALS: BP 99/68
[2021-04-12] MEDS: ACETAMINOPHEN 500 MG TAB (TYLENOL) PO SCH (09:14)
--- NOTE | 2021-04-12 10:12 | Discharge Summary ---
Diagnosis/Chief Complaint Date of Admission Apr 10, 2021 at 19:00 Date of Discharge April 12, 2021 Admission Diagnosis Admission Diagnosis 1. Intrauterine at 35 weeks gestation Discharge Diagnosis 1. Intrauterine at 35 weeks gestation Chief Complaint/HPI Chief Complaint/HPI 20-year-old 2 now para 2 L2 who initially presented in labor but rapidly progressed to full term labor. Her EDC was May 15, 2021. Her GBS status was unknown Discharge Summary-OBS Procedures 1. Spontaneous vaginal delivery Discharge Physical Examination Allergies: Coded Allergies: No Known Drug Allergies (Unverified , 10/11/19) Vitals & I&Os Vital Sign - Last 12Hours Date Time Temp Pulse Resp B/P (MAP) Pulse Ox O2 Delivery O2 Flow Rate FiO2 04/12/21 09:12 36.6 68 18 99/68 (78) 100 Room Air General Appearance: Alert Respiratory: Clear to Auscultation Cardiovascular: Regular Rate Abdominal: Soft (with uterus firm) Neuro: Normal Speech Hospital Course Was the Problem List Reviewed?: Yes Upon presentation April 10, 2021 she rapidly progressed to completion. She did ultimately deliver a viable male with Apgars of 8 at 1 minute and 9 at 5 minutes. See labor and delivery note for full details. Following delivery she underwent routine care orders. She had no complications during the remainder of hospital stay. She had minimal vaginal bleeding and minimal uterine cramping. Her hemoglobin in the morning of April 11 was noted to be 9.7 compared to admission of 11.1. She was felt ready for dismissal on the morning of April 12, 2021. All questions answered and she will follow-up with Dr. Cruz in 6 weeks. Discharge Instructions to patient/family Please see electronic discharge instructions given to patient. Discharge Medications Reviewed and agree with Discharge Medication list on patient's Discharge Instruction sheet CARLIN CHRISTIANSON MD Apr 12, 2021 10:12
--- NOTE | 2021-04-12 10:17 | Discharge Inst-Women's Service ---
Discharge Inst-Women's Serv Depart Medication/Instructions New, Converted or Re-Newed RX: Other Instructions May take ibuprofen 200 mg tablets and take 2 or 3 every 6 hours as needed for cramps or pain. Problems Reviewed?: Yes Consults/Follow Up Additional Follow Up: Yes (with Dr. Cruz in 6 weeks) Activity Activity: Activity as Tolerated Driving Instructions: No Driving for 1 Week Nothing Inside Vagina: No [place] (for 6 weeks) Diet Discharge Diet: Regular Diet Return to The Hospital For: as below Symptoms to Report to : Bleeding Excessive, Pain Increased, Fever Over 101 Degrees F, Vaginal Discharge Foul For Any Problems or Questions: Contact Your Physician CARLIN CHRISTIANSON MD Apr 12, 2021 10:17
== END 2021-04-12 11:50 | disposition home or self-care (01) | DRG 807 ==
LOC: WSo 18:11 → LDRP 18:12 → WSo 19:00 → LDRP 22:53
PROVIDERS: ADMIT Family Medicine; ATTEND Family Medicine
PROC: 10E0XZZ Delivery of Products of Conception, External Approach (ICD-10-PCS; principal; 2021-04-10)
DX: O60.14X0 Preterm labor third trimester with preterm delivery third trimester, not applicable or unspecified (principal); Z37.0 Single live birth; Z3A.35 35 weeks gestation of pregnancy
CPT/HCPCS: 36415; 80306; 82947; 85025; 86850; 86900; 86901; 86920; 99212

== ENCOUNTER 2022-03-07 18:17 | Emergency (ER) | payer MEDICAID ==
[2022-03-07 18:25] VITALS: BP 107/69
[2022-03-07 20:37] LABS: BASOPHILS % (AUTO) 1 % (0-10); EOSINOPHILS # (AUTO) 0.2 10^3/uL (0.0-0.3); EOSINOPHILS % (AUTO) 2 % (0-10); HEMATOCRIT 32 % (35-52); HEMOGLOBIN 10.2 g/dL (11.5-16.0); LYMPHOCYTES # (AUTO) 2.4 10^3/uL (1.0-4.0); LYMPHOCYTES % (AUTO) 30 % (12-44); MEAN CORPUSCULAR HEMOGLOBIN 25 pg (25-34); MEAN CORPUSCULAR HGB CONC 32 g/dL (32-36); MEAN CORPUSCULAR VOLUME 77 fL (80-99); MEAN PLATELET VOLUME 9.8 fL (9.0-12.2); MONOCYTES # (AUTO) 0.7 10^3/uL (0.0-1.0); MONOCYTES % (AUTO) 9 % (0-12); NEUTROPHILS # (AUTO) 4.5 10^3/uL (1.8-7.8); NEUTROPHILS % (AUTO) 58 % (42-75); PLATELET COUNT 319 10^3/uL (130-400); WHITE BLOOD COUNT 7.8 10^3/uL (4.3-11.0)
[2022-03-07 20:47] LABS: BILIRUBIN,URINE NEGATIVE (NEGATIVE); GLUCOSE, URINE (UA) NEGATIVE (NEGATIVE); KETONES,URINE NEGATIVE (NEGATIVE); LEUKOCYTE ESTERASE ,URINE TRACE (NEGATIVE); NITRITE,URINE NEGATIVE (NEGATIVE); PH,URINE 5.5 (5-9); PROTEIN,URINE TRACE (NEGATIVE)
[2022-03-07 20:49] LABS: CLARITY,URINE CLOUDY; COLOR,URINE LIGHT RED; RBC,URINE TNTC /HPF
[2022-03-07 20:53] LABS: AMPHETAMINE SCREEN, URINE POSITIVE (NEGATIVE); BARBITURATE SCREEN URINE NEGATIVE (NEGATIVE); BENZODIAZEPINES SCREEN URINE NEGATIVE (NEGATIVE); CANNABINOID SCREEN, URINE POSITIVE (NEGATIVE); COCAINE SCREEN URINE NEGATIVE (NEGATIVE); METHADONE STAT NEGATIVE (NEGATIVE); OPIATE SCREEN URINE NEGATIVE (NEGATIVE); OXYCODONE STAT NEGATIVE (NEGATIVE); PROPOXYPHENE STAT NEGATIVE (NEGATIVE); TRICYCLIC ANTIDEPRESSANTS SCRE NEGATIVE (NEGATIVE)
[2022-03-07 20:59] LABS: SODIUM 139 MMOL/L (135-145)
[2022-03-07 21:00] LABS: ALANINE AMINOTRANSFERASE 10 U/L (0-55); ALBUMIN 3.9 GM/DL (3.2-4.5); ALKALINE PHOSPHATASE 69 U/L (40-136); BILIRUBIN,TOTAL < 0.2 MG/DL (0.1-1.0); BUN/CREATININE RATIO 21; CARBON DIOXIDE 24 MMOL/L (21-32); CHLORIDE 104 MMOL/L (98-107); CREATININE SERUM 0.53 MG/DL (0.60-1.30); GFR ESTIMATED 136; GLUCOSE 121 MG/DL (70-105); POTASSIUM 3.3 MMOL/L (3.6-5.0); TOTAL PROTEIN 6.5 GM/DL (6.4-8.2)
--- NOTE | 2022-03-07 21:17 | ED Psychosocial ---
General Chief Complaint: Substance Abuse Stated Complaint: WITHDRAWAL Nursing Triage Note: Patient presents to ED via EMS with c/o lethargy and headache. History of meth use, states last use was 2-3 days ago. Reports she is living out of a car. Source: patient Exam Limitations: no limitations (CHAO EDWARDS DO) History of Present Illness Date Seen by Provider: Mar 07, 2022 Time Seen by Provider: 19:00 Initial Comments Patient is a 21-year-old female with history of methamphetamine abuse who presents with increased somnolence and paranoid ideation for the past 3 days. Patient has been homeless living out of car binging on methamphetamines and marijuana. She has been staying with with her boyfriend for the past 2 days. She denies HI, SI, paranoia or command hallucinations. She denies acute medical symptoms or complaints. Additional history obtained from the patient's mother who is at bedside. Timing/Duration: just prior to arrival Severity: moderate Associated Symptoms: other (CHAO EDWARDS DO) Allergies and Home Medications Allergies Coded Allergies: No Known Drug Allergies (Unverified , 10/11/19) Patient Home Medication List Home Medication List Reviewed: Yes (CHAO EDWARDS DO) Ferrous Sulfate (Ferosul) 325 Mg Tablet, 325 MG PO BID, (Reported) Entered as Reported by: GONZALO DONALD on 03/25/21 1701 Vit No.124/Iron/FA ( Vitamin Tablet) 1 Each Tablet, 1 EACH PO DAILY, (Reported) Entered as Reported by: JUANA FOSTER on 06/08/20 0632 Review of Systems Constitutional: see HPI EENTM: see HPI Respiratory: see HPI Cardiovascular: see HPI Gastrointestinal: see HPI Genitourinary: see HPI Musculoskeletal: see HPI Skin: see HPI Psychiatric/Neurological: See HPI (CHAO EDWARDS DO) All Other Systems Reviewed Negative Unless Noted: No (CHAO EDWARDS DO) Past Zqzkenl-Fijuzg-Rudphs Hx Patient Social History Tobacco Use?: No Use of E-Cig and/or Vaping dev: Yes E-Cig or Vaping type used: Nicotine Use of E-Cig and/or Vaping [place]: Current Everyday User Substance use?: Yes Substance type: Methamphetamine, Marijuana Additional substance use comme: Last use meth 2-3 days ago Alcohol Use?: No Pt feels they are or have been: No (CHAO EDWARDS DO) Immunizations Up To Date First/Initial COVID19 Vaccinat: Denies (CHAO EDWARDS DO) Seasonal Allergies Seasonal Allergies: No (CHAO EDWARDS DO) Past Medical History Surgery/Hospitalization HX: Childhood cancer; Substance abuse Surgeries: Yes (Cancer in muscle of back removed?) Respiratory: No Cardiac: No Neurological: No Sexually Transmitted Disease: Yes Genitourinary: No Gastrointestinal: No Musculoskeletal: No Endocrine: No HEENT: No Cancer: No Psychosocial: No Integumentary: No Blood Disorders: No Adverse Reaction/Blood Tranf: No (CHAO EDWARDS DO) Physical Exam Vital Signs - First Documented 03/07/22 18:25 Temp 36.3 Pulse 89 Resp 18 B/P (MAP) 107/69 (82) Pulse Ox 99 O2 Delivery Room Air (SARATH MIX MD) Capillary Refill : Less Than 3 Seconds (CHAO EDWARDS DO) Height, Weight, BMI Height: '" Weight: lbs. oz. kg; 24.78 BMI Method: General Appearance: WD/WN, no apparent distress HEENT: PERRL/EOMI, normal ENT inspection Neck: non-tender, full range of motion, supple Respiratory: chest non-tender, lungs clear Gastrointestinal: soft Neurologic/Psychiatric: engineering scientist II-XII nml as tested, no motor/sensory deficits, alert, oriented x 3, other (Anxious, paranoid ideation with bizarre thought) Thoughts/Hallucinations: no apparent hallucination; No grandiose, No incoherent, No obsessive, No paranoid, No persecution; episcopal; No tactile hallucinations, No visual hallucinations Skin: normal color (CHAO EDWARDS DO) Progress/Results/Core Measures Results/Orders Lab Results Laboratory Tests Test 03/07/22 20:30 03/07/22 20:35 Range/Units White Blood Count 7.8 4.3-11.0 10^3/uL Red Blood Count 4.11 3.80-5.11 10^6/uL Hemoglobin 10.2 L 11.5-16.0 g/dL Hematocrit 32 L 35-52 % Mean Corpuscular Volume 77 L 80-99 fL Mean Corpuscular Hemoglobin 25 25-34 pg Mean Corpuscular Hemoglobin Concent 32 32-36 g/dL Red Cell Distribution Width 16.3 H 10.0-14.5 % Platelet Count 319 130-400 10^3/uL Mean Platelet Volume 9.8 9.0-12.2 fL Immature Granulocyte % (Auto) 0 % Neutrophils (%) (Auto) 58 42-75 % Lymphocytes (%) (Auto) 30 12-44 % Monocytes (%) (Auto) 9 0-12 % Eosinophils (%) (Auto) 2 0-10 % Basophils (%) (Auto) 1 0-10 % Neutrophils # (Auto) 4.5 1.8-7.8 10^3/uL Lymphocytes # (Auto) 2.4 1.0-4.0 10^3/uL Monocytes # (Auto) 0.7 0.0-1.0 10^3/uL Eosinophils # (Auto) 0.2 0.0-0.3 10^3/uL Basophils # (Auto) 0.0 0.0-0.1 10^3/uL Immature Granulocyte # (Auto) 0.0 0.0-0.1 10^3/uL Sodium Level 139 135-145 MMOL/L Potassium Level 3.3 L 3.6-5.0 MMOL/L Chloride Level 104 98-107 MMOL/L Carbon Dioxide Level 24 21-32 MMOL/L Anion Gap 11 5-14 MMOL/L Blood Urea Nitrogen 11 7-18 MG/DL Creatinine 0.53 L 0.60-1.30 MG/DL Estimat Glomerular Filtration Rate 136 BUN/Creatinine Ratio 21 Glucose Level 121 H 70-105 MG/DL Calcium Level 9.0 8.5-10.1 MG/DL Corrected Calcium 9.1 8.5-10.1 MG/DL Total Bilirubin < 0.2 0.1-1.0 MG/DL Aspartate Amino Transf (AST/SGOT) 16 5-34 U/L Alanine Aminotransferase (ALT/SGPT) 10 0-55 U/L Alkaline Phosphatase 69 40-136 U/L Total Protein 6.5 6.4-8.2 GM/DL Albumin 3.9 3.2-4.5 GM/DL Urine Color LIGHT RED Urine Clarity CLOUDY Urine pH 5.5 5-9 Urine Specific [place] 1.010 L 1.016-1.022 Urine Protein TRACE H NEGATIVE Urine Glucose (UA) NEGATIVE NEGATIVE Urine Ketones NEGATIVE NEGATIVE Urine Nitrite NEGATIVE NEGATIVE Urine Bilirubin NEGATIVE NEGATIVE Urine Urobilinogen 0.2 < = 1.0 MG/DL Urine Leukocyte Esterase TRACE H NEGATIVE Urine RBC (Auto) 3+ H NEGATIVE Urine RBC TNTC H /HPF Urine WBC /HPF Urine Crystals NONE /LPF Urine Bacteria /HPF Urine Casts NONE /LPF Urine Mucus NEGATIVE /LPF Urine Culture Indicated YES Urine Opiates Screen NEGATIVE NEGATIVE Urine Oxycodone Screen NEGATIVE NEGATIVE Urine Methadone Screen NEGATIVE NEGATIVE Urine Propoxyphene Screen NEGATIVE NEGATIVE Urine Barbiturates Screen NEGATIVE NEGATIVE Ur Tricyclic Antidepressants Screen NEGATIVE NEGATIVE Urine Phencyclidine Screen NEGATIVE NEGATIVE Urine Amphetamines Screen POSITIVE H NEGATIVE Urine Methamphetamines Screen POSITIVE H NEGATIVE Urine Benzodiazepines Screen NEGATIVE NEGATIVE Urine Cocaine Screen NEGATIVE NEGATIVE Urine Cannabinoids Screen POSITIVE H NEGATIVE (SARATH MIX MD) Blood Pressure Mean: 82 Progress Progress Note : Progress Note I assumed care of patient from Dr. Edwards at shift change. Patient waiting on [facility] to find placement for patient to help her transition to rehab/detox from Methamphetamines. 1115 Patient decided to leave with her boyfriend. She was advised to wait until placement was found for her to help with her detox/rehab from Meth but she refused to wait or to sign any paperwork for leaving AMA. She said she felt she was ready to go and she went with her Boyfriend. [facility] was contacted and they advised that she was not involuntary and with her not being suicidal or homicidal she was free to go and we did not have to call law enforcement to bring her back to force her to wait until placement was found for her. (SARATH MIX MD) Departure Communication (Admissions) Family Conversation Patient medically stable. Labs positive for methamphetamines and marijuana family request mental health screening exam. Screener recommendations are for inpatient psych with transition to rehab. Patient medically stable and disposition pending at the time of shift change. (CHAO EDWARDS DO) Impression Primary Impression: Methamphetamine abuse Additional Impression: Psychosis Qualified Codes: F29 - Unspecified psychosis not due to a substance or known physiological condition Disposition: 07 AGAINST MEDICAL ADVICE Condition: Against Medical Advice Departure-Patient Inst. Decision time for Depature: 11:15 (SARATH MIX MD) Referrals: FRITZ CAMACHO MD (PCP/Family) Primary Care Physician Patient Instructions: ALCOHOL AND SUBSTANCE ABUSE, Drug Abuse and Drug Addiction (DC), Leaving Against Medical Advice, Methamphetamine CHAO EDWARDS DO Mar 07, 2022 21:17 SARATH MIX MD Mar 08, 2022 11:37
== END 2022-03-08 11:15 | disposition left against medical advice (07) ==
LOC: EDUNIT# 18:17 → ER FS 18:18 → ER 03-08 11:15
DX: F29 Unspecified psychosis not due to a substance or known physiological condition (principal); F15.10 Other stimulant abuse, uncomplicated; F17.200 Nicotine dependence, unspecified, uncomplicated; Z28.310 Unvaccinated for COVID-19
CPT/HCPCS: 36415; 80053; 80306; 81000; 84703; 85025; 87088